=== PATIENT | male | born 1945 | race Caucasian/White ===

== ENCOUNTER 2025-01-01 13:03 | Emergency (ER) | payer MEDICARE ==
[~2025-01-01] VITALS: Ht 182.9 cm; Wt 97.5 kg
[2025-01-01 13:24] VITALS: TEMP 98.2
[2025-01-01 13:52] LABS: BASOPHILS % 0.2 % (0.0-1.0); HEMATOCRIT 42.5 % (38.2-49.6); HEMOGLOBIN 13.7 g/dL (14.0-18.0); LYMPHOCYTES # (AUTO) 1.2 (1.0-3.2); LYMPHOCYTES % 28.9 % (18.0-39.1); MEAN CORPUSCULAR HEMOGLOBIN 30.6 pg (28-32); MEAN CORPUSCULAR HGB CONC 32.2 g/dL (31-35); MEAN CORPUSCULAR VOLUME 95.1 fL (81-99); MONOCYTES # (AUTO) 0.7 (0.2-0.8); MONOCYTES % 17.7 % (4.4-11.3); NEUTROPHILS # (AUTO) 2.2 (2.1-6.9); PLATELET COUNT 189 x10e3/uL (140-360); RED BLOOD COUNT 4.47 x10e6/uL (4.3-5.7); RED CELL DISTRIBUTION WIDTH 14.6 % (11.7-14.4); WHITE BLOOD COUNT 4.19 x10e3/uL (4.8-10.8)
[2025-01-01 14:14] LABS: ALBUMIN 3.3 g/dL (3.5-5.0); ALBUMIN/GLOBULIN RATIO 0.7 (0.8-2.0); ANION GAP 15.1 mmol/L (8-16); BILIRUBIN,TOTAL 0.7 mg/dL (0.2-1.2); CALCIUM 10.2 mg/dL (8.4-10.2); CREATININE, SERUM 2.29 mg/dL (0.72-1.25); TOTAL PROTEIN 8.1 g/dL (6.5-8.1)
[2025-01-01 14:19] LABS: POTASSIUM 3.1 mmol/L (3.5-5.1)
[2025-01-01] MEDS: LACTATED RINGER'S 1,000 ML INJ ONE (14:30)
[2025-01-01 14:55] LABS: BACTERIA,URINE MODERATE /HPF; BILIRUBIN,URINE NEGATIVE (NEGATIVE); CLARITY,URINE CLEAR (CLEAR); COLOR,URINE AMBER (YELLOW); GLUCOSE, URINE NEGATIVE (NEGATIVE); KETONES,URINE NEGATIVE (NEGATIVE); LEUKOCYTE ESTERASE ,URINE SMALL (NEGATIVE); NITRITE,URINE NEGATIVE (NEGATIVE); PH,URINE 7 (5 - 7); PROTEIN,URINE DIPSTICK 2+ (NEGATIVE); RBC,URINE 21-50 /HPF (0-5); URINE UROBILINOGEN 0.2 mg/dL (0.2 - 1); WBC,URINE (MAN) >50 /HPF (0-5)
[2025-01-01 14:56] LABS: EPITHELIAL CELLS,URINE FEW /LPF
[2025-01-01] MEDS ORDERED: CEFDINIR300 MG PO (15:43)
[2025-01-01 15:59] VITALS: PULSE 102; RESP 16; O2SAT 95
== END 2025-01-01 17:00 | disposition home or self-care (01) ==
LOC: ER 13:40
DX: Z46.6 Encounter for fitting and adjustment of urinary device (principal); T83.018A Breakdown (mechanical) of other urinary catheter, initial encounter; F03.90 Unspecified dementia, unspecified severity, without behavioral disturbance, psychotic disturbance, mood disturbance, and anxiety
CPT/HCPCS: 36415; 51702; 80053; 81001; 85025; 87086; 87186; 99284; J7121; 51700

== ENCOUNTER 2025-04-16 19:47 | Inpatient (IN) | payer MEDICARE ==
[~2025-04-16] VITALS: Ht 177.8 cm; Wt 85.7 kg
[~2025-04-16 19:47] MED LIST: CEFDINIR300 MG PO
[2025-04-16 20:31] LABS: BASOPHILS % 0.1 % (0.0-1.0); HEMATOCRIT 43.3 % (38.2-49.6); HEMOGLOBIN 14.3 g/dL (14.0-18.0); LYMPHOCYTES # (AUTO) 0.7 (1.0-3.2); LYMPHOCYTES % 6.6 % (18.0-39.1); MEAN CORPUSCULAR HEMOGLOBIN 31.4 pg (28-32); MEAN CORPUSCULAR VOLUME 95.2 fL (81-99); MONOCYTES # (AUTO) 1.1 (0.2-0.8); MONOCYTES % 10.3 % (4.4-11.3); NEUTROPHILS # (AUTO) 8.5 (2.1-6.9); NEUTROPHILS % 82.7 % (38.7-80.0); PLATELET COUNT 193 x10e3/uL (140-360); RED BLOOD COUNT 4.55 x10e6/uL (4.3-5.7); RED CELL DISTRIBUTION WIDTH 15.7 % (11.7-14.4); WHITE BLOOD COUNT 10.26 x10e3/uL (4.8-10.8)
[2025-04-16] MEDS: SODIUM CHLORIDE 0.9% 1000ML 1,000 ML IV STA (20:44)
[2025-04-16] MEDS: ACETAMINOPHEN 325 MG TAB PO STA (20:44)
[2025-04-16 20:51] LABS: BILIRUBIN,URINE NEGATIVE (NEGATIVE); CLARITY,URINE CLOUDY (CLEAR); COLOR,URINE YELLOW (YELLOW); GLUCOSE, URINE NEGATIVE (NEGATIVE); KETONES,URINE 1+ (NEGATIVE); LEUKOCYTE ESTERASE ,URINE LARGE (NEGATIVE); NITRITE,URINE NEGATIVE (NEGATIVE); PH,URINE 6 (5 - 7); PROTEIN,URINE DIPSTICK 2+ (NEGATIVE); URINE UROBILINOGEN 0.2 mg/dL (0.2 - 1)
[2025-04-16 20:52] LABS: ALBUMIN 3.6 g/dL (3.5-5.0); ALBUMIN/GLOBULIN RATIO 0.9 (0.8-2.0); ANION GAP 17.7 mmol/L (8-16); BILIRUBIN,TOTAL 3.3 mg/dL (0.2-1.2); CALCIUM 10.6 mg/dL (8.4-10.2); CREATININE, SERUM 1.39 mg/dL (0.72-1.25); POTASSIUM 3.7 mmol/L (3.5-5.1); TOTAL PROTEIN 7.6 g/dL (6.5-8.1)
[2025-04-16 20:57] LABS: TROPONIN I 0.027 ng/mL (0-0.300)
[2025-04-16 20:58] LABS: BACTERIA,URINE MANY /HPF; WBC,URINE (MAN) 21-50 /HPF (0-5)
[2025-04-16] MEDS ORDERED: IOPAMIDOL 370 MG/ML 100 ML INFUS..BTL INJ ONE (22:45)
[2025-04-17] VITALS (23 sets, daily range): BP systolic 116–167; BP diastolic 68–111; PULSE 74–111; RESP 14–31; TEMP 97.9–99; O2SAT 96–100
[2025-04-17] MEDS: ACETAMINOPHEN 325 MG TAB PO ONE (06:20)
[2025-04-17 06:48] LABS: BASOPHILS % 0.1 % (0.0-1.0); HEMATOCRIT 40.3 % (38.2-49.6); HEMOGLOBIN 13.2 g/dL (14.0-18.0); LYMPHOCYTES # (AUTO) 0.5 (1.0-3.2); LYMPHOCYTES % 5.2 % (18.0-39.1); MEAN CORPUSCULAR HEMOGLOBIN 31.2 pg (28-32); MEAN CORPUSCULAR HGB CONC 32.8 g/dL (31-35); MEAN CORPUSCULAR VOLUME 95.3 fL (81-99); MONOCYTES % 11.2 % (4.4-11.3); NEUTROPHILS # (AUTO) 7.3 (2.1-6.9); NEUTROPHILS % 83.3 % (38.7-80.0); PLATELET COUNT 155 x10e3/uL (140-360); RED BLOOD COUNT 4.23 x10e6/uL (4.3-5.7); RED CELL DISTRIBUTION WIDTH 15.7 % (11.7-14.4); WHITE BLOOD COUNT 8.78 x10e3/uL (4.8-10.8)
[2025-04-17 07:17] LABS: ALBUMIN 3.1 g/dL (3.5-5.0); ALBUMIN/GLOBULIN RATIO 0.9 (0.8-2.0); ANION GAP 14.6 mmol/L (8-16); BILIRUBIN,TOTAL 3.7 mg/dL (0.2-1.2); CALCIUM 9.7 mg/dL (8.4-10.2); CREATININE, SERUM 1.13 mg/dL (0.72-1.25); POTASSIUM 3.6 mmol/L (3.5-5.1); TOTAL PROTEIN 6.6 g/dL (6.5-8.1)
[2025-04-17 07:41] LABS: TROPONIN I 0.015 ng/mL (0-0.300)
[2025-04-17 15:13] LABS: TROPONIN I 0.015 ng/mL (0-0.300)
[2025-04-17] MEDS: SODIUM CHLORIDE 0.9% 500ML 500 ML ONE (18:14)
[2025-04-17] MEDS ORDERED: ACETAMINOPHEN 1000 MG/100 ML IV PRN (20:15)
[2025-04-17] MEDS ORDERED: ONDANSETRON HCL INJ 2MG/ML 2ML 2 MG/ML VIAL IV PRN (20:15)
[2025-04-17] MEDS: SODIUM CHLORIDE 0.9% 1000ML 1,000 ML IV SCH (20:44)
[2025-04-17] MEDS: TAMSULOSIN HCL 0.4 MG CAP PO SCH (20:59)
[2025-04-18] VITALS (24 sets, daily range): BP systolic 110–170; BP diastolic 52–104; PULSE 82–122; RESP 15–34; TEMP 98.4–99.6; O2SAT 92–100
[2025-04-18 06:59] LABS: BASOPHILS % 0.3 % (0.0-1.0); EOSINOPHILS % 0.3 % (0.0-6.0); HEMATOCRIT 36.4 % (38.2-49.6); HEMOGLOBIN 12.2 g/dL (14.0-18.0); LYMPHOCYTES # (AUTO) 0.8 (1.0-3.2); LYMPHOCYTES % 10.6 % (18.0-39.1); MEAN CORPUSCULAR HEMOGLOBIN 31.7 pg (28-32); MEAN CORPUSCULAR HGB CONC 33.5 g/dL (31-35); MEAN CORPUSCULAR VOLUME 94.5 fL (81-99); MONOCYTES % 13.6 % (4.4-11.3); NEUTROPHILS # (AUTO) 5.6 (2.1-6.9); NEUTROPHILS % 74.9 % (38.7-80.0); PLATELET COUNT 145 x10e3/uL (140-360); RED BLOOD COUNT 3.85 x10e6/uL (4.3-5.7); RED CELL DISTRIBUTION WIDTH 14.9 % (11.7-14.4); WHITE BLOOD COUNT 7.48 x10e3/uL (4.8-10.8)
[2025-04-18 07:34] LABS: ANION GAP 12.4 mmol/L (8-16); BILIRUBIN,TOTAL 2.4 mg/dL (0.2-1.2); CALCIUM 9.3 mg/dL (8.4-10.2); CREATININE, SERUM 1.03 mg/dL (0.72-1.25)
[2025-04-18 07:37] LABS: POTASSIUM 3.4 mmol/L (3.5-5.1)
[2025-04-18 07:45] LABS: ALBUMIN 2.6 g/dL (3.5-5.0); ALBUMIN/GLOBULIN RATIO 0.7 (0.8-2.0); TOTAL PROTEIN 6.1 g/dL (6.5-8.1)
[2025-04-18] MEDS: HYDRALAZINE HCL 20 MG/ML VIAL IV PRN (11:30)
[2025-04-19] VITALS (25 sets, daily range): BP systolic 135–188; BP diastolic 75–110; PULSE 87–121; RESP 15–32; TEMP 98–99; O2SAT 96–100
[2025-04-20] VITALS (18 sets, daily range): BP systolic 126–172; BP diastolic 73–108; PULSE 84–120; RESP 10–33; TEMP 97.5–98.7; O2SAT 95–99
[2025-04-20] MEDS: METOPROLOL TARTRATE 25 MG TAB PO SCH (12:25)
[2025-04-20] MEDS: ENOXAPARIN SOD INJ 40 MG/0.4 ML SYR SC SCH (17:20)
[2025-04-21] VITALS (7 sets, daily range): BP systolic 145–157; BP diastolic 75–99; PULSE 86–123; RESP 18; TEMP 97.8–98.2; O2SAT 97–100
[2025-04-21 08:25] LABS: BASOPHILS % 0.2 % (0.0-1.0); EOSINOPHILS # (AUTO) 0.2 (0.0-0.4); EOSINOPHILS % 2.9 % (0.0-6.0); HEMATOCRIT 37.5 % (38.2-49.6); LYMPHOCYTES # (AUTO) 1.3 (1.0-3.2); LYMPHOCYTES % 21.8 % (18.0-39.1); MEAN CORPUSCULAR HEMOGLOBIN 31.5 pg (28-32); MEAN CORPUSCULAR HGB CONC 34.7 g/dL (31-35); MEAN CORPUSCULAR VOLUME 90.8 fL (81-99); MONOCYTES # (AUTO) 0.7 (0.2-0.8); MONOCYTES % 12.2 % (4.4-11.3); NEUTROPHILS # (AUTO) 3.7 (2.1-6.9); NEUTROPHILS % 62.7 % (38.7-80.0); PLATELET COUNT 185 x10e3/uL (140-360); RED BLOOD COUNT 4.13 x10e6/uL (4.3-5.7); RED CELL DISTRIBUTION WIDTH 13.9 % (11.7-14.4); WHITE BLOOD COUNT 5.83 x10e3/uL (4.8-10.8)
[2025-04-21 08:52] LABS: ANION GAP 13.9 mmol/L (8-16); CALCIUM 9.2 mg/dL (8.4-10.2); CREATININE, SERUM 0.96 mg/dL (0.72-1.25)
[2025-04-21 09:07] LABS: POTASSIUM 2.9 mmol/L (3.5-5.1)
[2025-04-21 09:08] LABS: MAGNESIUM 1.7 MG/DL (1.3-2.1); PHOSPHORUS 2.7 MG/DL (2.3-4.7)
[2025-04-21 10:43] LABS: EOSINOPHILS % (MANUAL) 2 % (0-7); LYMPHOCYTES % (MANUAL) 24 % (19-48); MONOCYTES % (MANUAL) 7 % (3.4-9.0); NEUTROPHILS % (MANUAL) 63 % (40-74); REACTIVE LYMPHOCYTES 4
[2025-04-21 10:44] LABS: PLATELET ESTIMATE ADEQUATE; PLATELET MORPHOLOGY COMMENT NORMAL
[2025-04-21] MEDS: SOD CHL 0.45%/POT CHL 20MEQ 1,000 ML IV SCH (11:21)
[2025-04-21] MEDS: MAGNESIUM SULFATE 2GM/50ML 50 ML IV ONE (11:21)
[2025-04-21] MEDS ORDERED: SODIUM CHLORIDE 0.9% 100 ML ONE (13:42)
[2025-04-21] MEDS: POTASSIUM PHOSPHATE 30 MM in SODIUM CHLORIDE 0.9% 250ML 250 ML IV ONE (14:43)
[2025-04-22] VITALS (7 sets, daily range): BP systolic 142–160; BP diastolic 64–101; PULSE 77–91; RESP 18–20; TEMP 97.2–97.9; O2SAT 98–100
[2025-04-22 06:41] LABS: ANION GAP 11.3 mmol/L (8-16); CALCIUM 9.1 mg/dL (8.4-10.2)
[2025-04-22 06:47] LABS: POTASSIUM 3.3 mmol/L (3.5-5.1)
[2025-04-22 07:03] LABS: MAGNESIUM 2.1 MG/DL (1.3-2.1); PHOSPHORUS 2.8 MG/DL (2.3-4.7)
[2025-04-22] MEDS: METOPROLOL TARTRATE 50 MG TAB PO SCH (10:22)
[2025-04-22] MEDS: AMLODIPINE BESYLATE 5 MG TAB PO SCH (10:22)
[2025-04-23] VITALS (8 sets, daily range): BP systolic 113–184; BP diastolic 64–107; PULSE 87–103; RESP 16–20; TEMP 97.4–98.5; O2SAT 98–100
[2025-04-24] VITALS (7 sets, daily range): BP systolic 137–154; BP diastolic 76–92; PULSE 90–102; RESP 18–20; TEMP 97.3–98.4; O2SAT 99–100
[2025-04-24 06:43] LABS: BASOPHILS % 0.5 % (0.0-1.0); EOSINOPHILS # (AUTO) 0.2 (0.0-0.4); EOSINOPHILS % 2.9 % (0.0-6.0); HEMATOCRIT 38.9 % (38.2-49.6); HEMOGLOBIN 12.9 g/dL (14.0-18.0); LYMPHOCYTES # (AUTO) 1.4 (1.0-3.2); LYMPHOCYTES % 22.9 % (18.0-39.1); MEAN CORPUSCULAR HEMOGLOBIN 30.7 pg (28-32); MEAN CORPUSCULAR HGB CONC 33.2 g/dL (31-35); MEAN CORPUSCULAR VOLUME 92.6 fL (81-99); MONOCYTES # (AUTO) 0.6 (0.2-0.8); MONOCYTES % 9.3 % (4.4-11.3); NEUTROPHILS % 64.1 % (38.7-80.0); PLATELET COUNT 252 x10e3/uL (140-360); RED CELL DISTRIBUTION WIDTH 13.7 % (11.7-14.4); WHITE BLOOD COUNT 6.24 x10e3/uL (4.8-10.8)
[2025-04-24 07:18] LABS: ANION GAP 13.5 mmol/L (8-16); CALCIUM 9.7 mg/dL (8.4-10.2); CREATININE, SERUM 1.01 mg/dL (0.72-1.25); POTASSIUM 3.5 mmol/L (3.5-5.1)
[2025-04-24 08:57] LABS: EOSINOPHILS % (MANUAL) 2 % (0-7); LYMPHOCYTES % (MANUAL) 16 % (19-48); MONOCYTES % (MANUAL) 9 % (3.4-9.0); NEUTROPHILS % (MANUAL) 73 % (40-74)
[2025-04-24 08:58] LABS: PLATELET ESTIMATE ADEQUATE; PLATELET MORPHOLOGY COMMENT NORMAL
[2025-04-24] MEDS: ACETAMINOPHEN 325 MG TAB PO PRN (13:21)
[2025-04-25 02:01] VITALS: BP 140/89; PULSE 100; RESP 20; TEMP 97.6; O2SAT 99
[2025-04-25 03:23] VITALS: BP 150/87; PULSE 90; RESP 18; TEMP 98; O2SAT 99
[2025-04-25 08:31] VITALS: BP 151/78; PULSE 99; RESP 20; TEMP 97.7; O2SAT 100
[2025-04-25 12:20] VITALS: BP 156/86; PULSE 87; RESP 19; TEMP 97; O2SAT 99
== END 2025-04-25 14:20 | disposition home health service (06) | DRG 698 ==
LOC: ER 19:55 → ERHOLD 21:48 → ICU 04-17 09:40 → MED/SURG3 04-21 01:19
PROVIDERS: ADMIT Internal Medicine; ATTEND Internal Medicine
PROC: 0T2BX0Z Change Drainage Device in Bladder, External Approach (ICD-10-PCS; principal; 2025-04-16)
PROC: 3E03329 Introduction of Other Anti-infective into Peripheral Vein, Percutaneous Approach (ICD-10-PCS; 2025-04-16)
DX: T83.511A Infection and inflammatory reaction due to indwelling urethral catheter, initial encounter (principal); A41.59 Other Gram-negative sepsis; R65.20 Severe sepsis without septic shock; N13.6 Pyonephrosis; N13.8 Other obstructive and reflux uropathy; Z16.11 Resistance to penicillins; S37.829A Unspecified injury of prostate, initial encounter; R31.29 Other microscopic hematuria; B96.1 Klebsiella pneumoniae [K. pneumoniae] as the cause of diseases classified elsewhere; N40.1 Benign prostatic hyperplasia with lower urinary tract symptoms; R33.8 Other retention of urine; Z46.6 Encounter for fitting and adjustment of urinary device; T83.091A Other mechanical complication of indwelling urethral catheter, initial encounter; Y84.6 Urinary catheterization as the cause of abnormal reaction of the patient, or of later complication, without mention of misadventure at the time of the procedure; Y92.009 Unspecified place in unspecified non-institutional (private) residence as the place of occurrence of the external cause; I10 Essential (primary) hypertension; K80.20 Calculus of gallbladder without cholecystitis without obstruction; R00.0 Tachycardia, unspecified; E87.8 Other disorders of electrolyte and fluid balance, not elsewhere classified; Z79.899 Other long term (current) drug therapy
CPT/HCPCS: 36415; 51700; 71045; 71260; 74177; 80048; 80053; 81001; 82550; 83605; 83690; 83735; 83880; 84100; 84484; 85025; 87040; 87071; 87086; 87186; 87205; 93005; 94799; 99252; 99285; J0360; J0690; J1650; J2470; J2543; J3475; J7030; J7040; J7050; Q9967